=== PATIENT | male | born 1970 | race Caucasian/White ===

== ENCOUNTER 2017-02-07 17:12 | Emergency (ER) | payer SELFPAY ==
--- NOTE | 2017-02-07 18:02 | Emergency Department Report ---
Chief Complaint: High BP Stated Complaint: HEADACHE/HBP Time Seen by Provider: 02/07/17 17:57 - HPI History of Present Illness: PT states he has been out of his htn medication x 1.5 months. PT c/o headache that started 2 days ago, gradually worsened. PT states slight improvement after taking Motrin yesterday. PT states he went up to the fire dept in [place] and was told that his bp was 180/110. - ROS Review of Systems: - chest pain - sob + headaches + intermittent dizziness - Exam Vital Signs: Vital Signs 02/07/17 17:32 Temperature 98.5 F Pulse Rate 83 Respiratory 20 Rate Blood Pressure 185/130 O2 Sat by Pulse 100 Oximetry Physical Exam: PT looks well, non toxic. No acute distress gcs 15. steady gait RRR, lungs cta MSE screening note: Focused history and physical exam performed. Due to findings the following was ordered: labs, EKG ED Disposition for MSE Condition: Stable
[2017-02-07 18:25] LABS: Basophils % (Auto) 1.1 % (0.0-1.8); Eosinophils % (Auto) 5.8 % (0.0-4.3); Hematocrit 46.2 % (35.5-45.6); Hemoglobin 15.6 gm/dl (11.8-15.2); Mean Corpuscular HGB Conc 34 % (32-34); Mean Corpuscular Hemoglobin 29 pg (28-32); Mean Corpuscular Volume 86 fl (84-94); Platelet Count 207 K/mm3 (140-440); White Blood Count 6.1 K/mm3 (4.5-11.0)
[2017-02-07 18:44] LABS: Anion Gap 17 mmol/L; BUN/Creatinine Ratio 11.11; Blood Urea Nitrogen 10 mg/dL (9-20); Carbon Dioxide 21 mmol/L (22-30); Chloride 103.5 mmol/L (98-107); Glucose 112 mg/dL (75-100); Sodium 137 mmol/L (137-145)
[2017-02-07] MEDS ORDERED: ZESTRIL PO ONE (19:38)
[2017-02-07] MEDS ORDERED: HCTZ PO ONE (19:38)
[2017-02-07] MEDS ORDERED: TYLENOL PO ONE (19:39)
--- NOTE | 2017-02-07 23:18 | Emergency Department Report ---
ED Headache HPI - General Chief Complaint: High BP Stated Complaint: HEADACHE/HBP Time Seen by Provider: 02/07/17 17:57 Source: patient Exam Limitations: no limitations - History of Present Illness Initial Comments: 46-year-old male with a past medical history hypertension presents hospital complaints of headache and elevated blood pressure. Patient has been out of his blood pressure medication for the last 3 weeks. For the past 3-4 days he has had intermittent headache. Headache is left sided, the top of the head patient's, and occasional back in the head. Headache is typical of previous hypertensive-related headaches. Headache rated the/10 in intensity without aggravating or alleviating factors reported. Patient does not have any medications because he did not have insurance to see another physician for med refill. He denies blurred vision, nausea, vomiting, chest pain, shortness of breath, diaphoresis, focal numbness or weakness. PT now has insurance and plans to follow-up with the doctor on a regular basis. Allergies/Adverse Reactions: Allergies No Known Allergies Allergy (Unverified 02/07/17 17:31) Home Medications: Ambulatory Orders Lisinopril/Hydrochlorothiazide [Zestoretic 10-12.5 mg] 1 tab PO QDAY #30 tablet 02/07/17 ED Review of Systems ROS: Stated complaint: HEADACHE/HBP Other details as noted in HPI Comment: All other systems reviewed and negative Other: Constitutional: No fevers chills Eyes: No eye pain visual changes ENT: No ear pain or throat pain Neck: Denies pain Respiratory: Denies cough wheezing shortness of breath Cardiovascular: Denies chest pain, palpitations, syncope GI: Denies abdominal pain, nausea, vomiting, diarrhea : Denies dysuria Musculoskeletal: Denies back pain, joint swelling Skin: Denies rash, lesions, erythema Neurologic: As per HPI Psychiatric: Denies suicidal ideation, hallucinations ED Past Medical Hx - Past Medical History Previous Medical History?: Yes Hx Hypertension: Yes - Surgical History Past Surgical History?: No - Social History Smoking Status: Current Every Day Smoker Substance Use Type: Alcohol, Prescribed - Medications Home Medications: Home Medications Medication Instructions Recorded Confirmed Last Taken Type Lisinopril/Hydrochlorothiazide 1 tab PO QDAY #30 tablet 02/07/17 Unknown Rx [Zestoretic 10-12.5 mg] ED Physical Exam - General Limitations: No Limitations - Other Other exam information: General: No limitations, patient is alert in no acute distress Head exam: Atraumatic, normocephalic Eyes exam: Normal appearance ENT: Moist mucous membrane, normal oropharynx Neck exam: Normal inspection, full range of motion, no meningismus nontender Respiratory exam: Clear to auscultation bilateral, no wheezes, rales, crackles Cardiovascular: Normal rate and rhythm, normal heart sounds Abdomen: Soft, nondistended, and nontender, with normal bowel sounds, no rebound, or guarding Extremity: Full range of motion normal inspection no deformity Back: Normal Inspection, full range of motion, no tenderness Neurologic: Alert, oriented x3, cranial nerves intact, no motor or sensory deficit Psychiatric: normal affect, normal mood Skin: Warm, dry, intact ED Course Vital Signs 02/07/17 02/07/17 02/07/17 17:32 19:38 19:54 Temperature 98.5 F Pulse Rate 83 83 83 Respiratory 20 18 Rate Blood Pressure 185/130 Blood Pressure 156/111 [Right] O2 Sat by Pulse 100 Oximetry 02/07/17 20:55 Temperature Pulse Rate 84 Respiratory 220 H Rate Blood Pressure Blood Pressure 165/117 [Right] O2 Sat by Pulse 99 Oximetry - Reevaluation(s) Reevaluation #1: 02/07/17 23:17 Patient received Tylenol, lisinopril, and hydrochlorothiazide at his typical home dose prior to my evaluation with reduction in blood pressure. To my examination BP is 151/105 and patient states that his headache has completely resolved. ED Medical Decision Making - Lab Data Result diagrams: 02/07/17 18:13 02/07/17 18:13 Lab Results 02/07/17 02/07/17 Range/Units 18:13 18:13 WBC 6.1 (4.5-11.0) K/mm3 RBC 5.40 H (3.65-5.03) M/mm3 Hgb 15.6 H (11.8-15.2) gm/dl Hct 46.2 H (35.5-45.6) % MCV 86 (84-94) fl MCH 29 (28-32) pg MCHC 34 (32-34) % RDW 13.0 L (13.2-15.2) % Plt Count 207 (140-440) K/mm3 Lymph % (Auto) 40.1 H (13.4-35.0) % Harlan % (Auto) 9.5 H (0.0-7.3) % Eos % (Auto) 5.8 H (0.0-4.3) % Baso % (Auto) 1.1 (0.0-1.8) % Lymph # 2.4 (1.2-5.4) K/mm3 Harlan # 0.6 (0.0-0.8) K/mm3 Eos # 0.4 (0.0-0.4) K/mm3 Baso # 0.1 (0.0-0.1) K/mm3 Seg Neutrophils % 43.5 (40.0-70.0) % Seg Neutrophils # 2.6 (1.8-7.7) K/mm3 Sodium 137 (137-145) mmol/L Carbon Dioxide 21 L (22-30) mmol/L BUN 10 (9-20) mg/dL Creatinine 0.9 (0.8-1.5) mg/dL Estimated GFR > 60 ml/min BUN/Creatinine Ratio 11.11 % Glucose 112 H (75-100) mg/dL Calcium 9.0 (8.4-10.2) mg/dL Troponin T < 0.010 (0.00-0.029) ng/mL Lab reports that the potassium is 4.0, chloride 103.5, anion gap 17 - EKG Data -: EKG Interpreted by Me (sinus rate 82, left atrial enlargement no ST elevation MO) - EKG Data When compared to previous EKG there are: previous EKG unavailable - Medical Decision Making Patient's symptoms improved and hisblood pressure is reducing. Patient will be restarted on his home meds and discharged home with PMD follow-up. No signs of hypertensive emergency at this time - Differential Diagnosis hypertensive headache, hypertensive emergency, urgency, medication noncompl Critical Care Time: No Critical care attestation.: If time is entered above; I have spent that time in minutes in the direct care of this critically ill patient, excluding procedure time. ED Disposition Clinical Impression: Hypertension, uncontrolled, Headache, Noncompliance with medication regimen Disposition: DISCHARGED TO HOME OR SELFCARE Is pt being admited?: No Does the pt Need Aspirin: No Condition: Stable Instructions: Hypertension (ED), Acute Headache (ED) Additional Instructions: Take the medication as prescribed. Follow-up with the doctor provided with the doctor of your choice for further management. Return if symptoms worsen Prescriptions: Lisinopril/Hydrochlorothiazide [Zestoretic 10-12.5 mg] 1 tab PO QDAY #30 tablet Referrals: KRISTY DING MD [Staff Physician] - 3-5 Days Time of Disposition: 23:20
[2017-02-07 23:33] VITALS: BP 138/93
== END 2017-02-07 23:34 | disposition home or self-care (01) ==
LOC: ED 17:12
DX: I10 Essential (primary) hypertension (principal); R51 Headache; Z91.14 Patient's other noncompliance with medication regimen; F17.200 Nicotine dependence, unspecified, uncomplicated
CPT/HCPCS: 36415; 80048; 84484; 85025; 93005; 93010; 99283

== ENCOUNTER 2022-08-09 23:04 | Emergency (ER) | payer SELFPAY ==
[2022-08-10] MEDS ORDERED: SODIUM CHLORIDE 0.9% 1000 ML 2,000 ML IV ONE (03:23)
--- NOTE | 2022-08-10 03:50 | Emergency Department Report ---
ED General Adult HPI - General Chief complaint: Hyperglycemia Stated complaint: HYPERGLYCEMIA Time Seen by Provider: 08/10/22 03:49 Source: patient, EMS ( EMS documentation not available at time of chart dictation ), RN notes reviewed, old records reviewed Mode of arrival: Stretcher Limitations: No Limitations - History of Present Illness Initial comments: The patient was evaluated in the emergency department for symptoms described in the history of present illness. He/she was evaluated in the context of the global COVID-19 pandemic, which necessitated consideration that the patient might be at risk for infection with the virus that causes COVID-19. Institutional protocols and algorithms that pertain to the evaluation of patients at risk for COVID-19 are in a state of rapid change based on information released by regulatory bodies including the CDC and federal and state organizations. These policies and algorithms were followed during the patient's care in the emergency department. Please note that these policies, procedures and recommendations changed on a rapid basis. This is a 51-year-old gentleman who was recently diagnosed with COVID a few weeks ago. He is not COVID-19 vaccinated. He is currently taking albuterol, Tessalon, Augmentin, prednisone, Norvasc and lisinopril. To the best of his knowledge, he does not have a formal diagnosis of type 2 diabetes. He presents to the department today with a complaint of cough, sore throat, malaise, fatigue, polyuria and dysuria. He denies physical pain. He normally smokes c igarettes, he stopped 3 months ago. He sleeps in bed by himself but snores. He has not been formally tested for obstructive sleep apnea. He was found to have high glucose in the emergency department. -: days(s), week(s) Location: mouth Consistency: constant Improves with: rest Worsens with: eating - Related Data Previous Rx's Medication Instructions Recorded Last Taken Type Lisinopril/Hydrochlorothiazide 1 tab PO QDAY #30 tablet 02/07/17 Unknown Rx [Zestoretic 10-12.5 mg] Metoclopramide [Reglan] 10 mg PO Q6HR PRN #30 tab 08/10/22 Unknown Rx metFORMIN [Glucophage] 500 mg PO QDAY #30 tab 08/10/22 Unknown Rx Allergies Allergy/AdvReac Type Severity Reaction Status Date / Time No Known Allergies Allergy Verified 08/10/22 03:45 ED Review of Systems ROS: Stated complaint: HYPERGLYCEMIA Other details as noted in HPI Constitutional: malaise, weakness. denies: fever Eyes: denies: eye discharge ENT: congestion Respiratory: cough Cardiovascular: denies: chest pain Gastrointestinal: abdominal pain. denies: vomiting Genitourinary: frequency Neurological: weakness ED Past Medical Hx - Past Medical History Hx Hypertension: Yes - Social History Smoking Status: Current Every Day Smoker Substance Use Type: Alcohol, Prescribed - Medications Home Medications: Home Medications Medication Instructions Recorded Confirmed Last Taken Type Lisinopril/Hydrochlorothiazide 1 tab PO QDAY #30 tablet 02/07/17 Unknown Rx [Zestoretic 10-12.5 mg] Metoclopramide [Reglan] 10 mg PO Q6HR PRN #30 tab 08/10/22 Unknown Rx metFORMIN [Glucophage] 500 mg PO QDAY #30 tab 08/10/22 Unknown Rx ED Physical Exam - General Limitations: No Limitations General appearance: alert, obese - Head Head exam: Present: atraumatic, normocephalic - Eye Eye exam: Present: normal appearance, EOMI. Absent: nystagmus - ENT ENT exam: Present: normal orophraynx, mucous membranes dry, normal external ear exam - Neck Neck exam: Present: normal inspection, full ROM. Absent: tenderness, meningismus - Respiratory Respiratory exam: Present: normal lung sounds bilaterally. Absent: respiratory distress, wheezes, rales, rhonchi, stridor, decreased breath sounds - Cardiovascular Cardiovascular Exam: Present: normal rhythm, tachycardia, normal heart sounds. Absent: bradycardia, irregular rhythm, systolic murmur, diastolic murmur, rubs, gallop - GI/Abdominal GI/Abdominal exam: Present: soft. Absent: distended, tenderness, guarding, rebound, rigid, pulsatile mass - Rectal Rectal exam: Present: deferred - Extremities Exam Extremities exam: Present: normal inspection, full ROM, other (2+ pulses noted in the bilateral upper and lower extremities. There is no palpable cord. negative Homans sign. Muscular compartments are soft. The pelvis is stable.). Absent: pedal edema, calf tenderness - Back Exam Back exam: Present: normal inspection, full ROM. Absent: tenderness, CVA tender ness (R), CVA tenderness (L), paraspinal tenderness, vertebral tenderness - Neurological Exam Neurological exam: Present: alert, oriented X3, normal gait, other (No facial droop. Tongue midline. Extraocular movements intact bilaterally. Facial sensation intact to light touch in V1, V2, V3 distribution bilaterally. 5 and a 5 strength in 4 extremities. Sensation intact to light touch in 4 extremities.). Absent: motor sensory deficit - Psychiatric Psychiatric exam: Present: anxious - Skin Skin exam: Present: warm, dry, intact, normal color. Absent: rash ED Course Vital Signs 08/09/22 08/10/22 08/10/22 23:14 03:18 03:30 Temperature 98.7 F Pulse Rate 105 H 101 H 111 H Respiratory 16 23 20 Rate Blood Pressure 126/86 Blood Pressure 122/84 [Right] O2 Sat by Pulse 97 97 98 Oximetry O2 Sat by Pulse Oximetry [ Digit-Finger] 08/10/22 08/10/22 08/10/22 03:46 04:00 04:16 Temperature Pulse Rate 101 H 97 H 95 H Respiratory 19 20 20 Rate Blood Pressure 121/83 121/83 127/80 Blood Pressure [Right] O2 Sat by Pulse 97 97 98 Oximetry O2 Sat by Pulse Oximetry [ Digit-Finger] 08/10/22 08/10/22 04:30 05:11 Temperature Pulse Rate 85 Respiratory 13 Rate Blood Pressure 127/80 Blood Pressure [Right] O2 Sat by Pulse 98 Oximetry O2 Sat by Pulse 99 Oximetry [ Digit-Finger] - Reevaluation(s) Reevaluation #1: 08/10/22 05:04 Differential diagnosis, including but not limited to: Long COVID, viral syndrome, obstructive sleep apnea, type 2 diabetes, hyperosmolar state, diabetic ketoacidosis Assessment and plan: 51-year-old gentleman with probable subacute long COVID symptoms. He also most likely has undiagnosed obstructive sleep apnea. He is not hypoxic. Discussed natural history of obstructive sleep apnea, as well as long COVID. Supportive care, salt water gargles, Tylenol or Motrin. Patient is found to have high glucose. IV fluids ordered. Ice chips with water have been provided to the patient. Currently awaiting basic metabolic panel 08/10/22 05:07 Patient is found to have hyperglycemia, and pseudohyponatremia. Venous pH within normal limits, although anion gap minimally elevated. IV fluids ordered. Insulin ordered. Repeat basic metabolic panel ordered. Care will be transferred to the oncoming ER physician, Dr Medina Bishop, to follow-up on repeat basic metabolic panel. If improved, consider discharge with diet and lifestyle modifications, as well as outpatient metformin. Long COVID and presumed obstructive sleep apnea may require outpatient follow-up 08/10/22 06:03 - Pulse Oximetry Interpretation Digit-Finger Initial Pulse Oximetry Readin O2 Sat by Pulse Oximetry: 99 Actions Taken: none ED Medical Decision Making - Lab Data Result diagrams: 08/10/22 03:34 08/10/22 03:34 Vital Signs 08/09/22 08/10/22 08/10/22 23:14 03:18 03:30 Temperature 98.7 F Pulse Rate 105 H 101 H 111 H Respiratory 16 23 20 Rate Blood Pressure 126/86 Blood Pressure 122/84 [Right] O2 Sat by Pulse 97 97 98 Oximetry 08/10/22 08/10/22 08/10/22 03:46 04:00 04:16 Temperature Pulse Rate 101 H 97 H 95 H Respiratory 19 20 20 Rate Blood Pressure 121/83 121/83 127/80 Blood Pressure [Right] O2 Sat by Pulse 97 97 98 Oximetry 08/10/22 04:30 Temperature Pulse Rate 85 Respiratory 13 Rate Blood Pressure 127/80 Blood Pressure [Right] O2 Sat by Pulse 98 Oximetry Lab Results 08/10/22 08/10/22 08/10/22 Range/Units 03:12 03:34 03:34 WBC 7.7 (4.5-11.0) K/mm3 RBC 4.99 (3.65-5.03) M/mm3 Hgb 14.9 (11.8-15.2) gm/dl Hct 43.3 (35.5-45.6) % MCV 87 (84-94) fl MCH 30 (28-32) pg MCHC 35 H (32-34) % RDW 12.3 L (13.2-15.2) % Plt Count 272 (140-440) K/mm3 VBG pH (7.320-7.420) Sodium 132 L (137-145) mmol/L Potassium 4.6 (3.6-5.0) mmol/L Chloride 94.4 L (98-107) mmol/L Carbon Dioxide 20 L (22-30) mmol/L Anion Gap 22 mmol/L BUN 17 (9-20) mg/dL Creatinine 1.2 (0.8-1.3) mg/dL Estimated GFR > 60 ml/min BUN/Creatinine Ratio 14 % Glucose 574 H* (75-100) mg/dL POC Glucose 531 H (70-105) mg/dL Calcium 9.3 (8.4-10.2) mg/dL Magnesium 1.90 (1.7-2.3) mg/dL Total Bilirubin 0.70 (0.1-1.2) mg/dL AST 20 (5-40) units/L ALT 48 (7-56) units/L Alkaline Phosphatase 152 H (35-129) units/L Total Protein 6.7 (6.3-8.2) g/dL Albumin 4.2 (3.9-5) g/dL Albumin/Globulin Ratio 1.7 % 08/10/22 Range/Units 03:34 WBC (4.5-11.0) K/mm3 RBC (3.65-5.03) M/mm3 Hgb (11.8-15.2) gm/dl Hct (35.5-45.6) % MCV (84-94) fl MCH (28-32) pg MCHC (32-34) % RDW (13.2-15.2) % Plt Count (140-440) K/mm3 VBG pH 7.331 (7.320-7.420) Sodium (137-145) mmol/L Potassium (3.6-5.0) mmol/L Chloride (98-107) mmol/L Carbon Dioxide (22-30) mmol/L Anion Gap mmol/L BUN (9-20) mg/dL Creatinine (0.8-1.3) mg/dL Estimated GFR ml/min BUN/Creatinine Ratio % Glucose (75-100) mg/dL POC Glucose (70-105) mg/dL Calcium (8.4-10.2) mg/dL Magnesium (1.7-2.3) mg/dL Total Bilirubin (0.1-1.2) mg/dL AST (5-40) units/L ALT (7-56) units/L Alkaline Phosphatase (35-129) units/L Total Protein (6.3-8.2) g/dL Albumin (3.9-5) g/dL Albumin/Globulin Ratio % Critical care attestation.: If time is entered above; I have spent that time in minutes in the direct care of this critically ill patient, excluding procedure time. ED Disposition Clinical Impression: Long COVID, Hyperglycemia Disposition: 30 STILL A PATIENT Is pt being admited?: No Condition: Stable Instructions: Sleep Apnea, Hyperglycemia, [id number] Additional Instructions: We recommend that patient complete his COVID-19 vaccination series when able to. We recommend that patient aggressively lose weight, diet appropriately, and participate in exercise as tolerated. Patient may reference the [place] [employer] website for instructions and recommendations on how to consume an appropriate diabetic diet. Patient most likely has symptoms of COVID, and long COVID. COVID symptoms may last for up to a few months. May alternate Tylenol and Motrin [id number], salt water gargles. Patient most likely has obstructive sleep apnea. Treatment for sleep apnea will be diet lifestyle modifications as previously described. We also recommend follow-up with a sleep physician, such as Dr. Vargas, To arrange for definitive outpatient sleep study. Patient most likely has type 2 diabetes mellitus. First-line treatment will be diet lifestyle modifications, appropriate food consumption, and exercise. Patient may take the prescribed metformin if he so desires to assist with glucose control. Side effects of metformin may include abdominal cramping, nausea, vomiting and diarrhea. Follow-up with a primary care doctor within the next 2 weeks. Follow-up with a sleep physician within the next 2 weeks. Please return to the emergency room right away with new pain, worsened pain, migration of pain, projectile vomiting, change in mental status, confusion, inability tolerate liquid feeds, new, worsened or different symptoms not present on the initial emergency room evaluation Prescriptions: metFORMIN [Glucophage] 500 mg PO QDAY #30 tab Metoclopramide [Reglan] 10 mg PO Q6HR PRN #30 tab PRN Reason: Nausea Referrals: [facility] [Provider Group] - 3-5 Days UMBERTO VARGAS MD [Staff Physician] - 3-5 Days Forms: Work/School Release Form(ED)
[2022-08-10 04:22] LABS: Hematocrit 43.3 % (35.5-45.6); Hemoglobin 14.9 gm/dl (11.8-15.2); Mean Corpuscular HGB Conc 35 % (32-34); Mean Corpuscular Volume 87 fl (84-94); Platelet Count 272 K/mm3 (140-440); Red Blood Count 4.99 M/mm3 (3.65-5.03); Red Cell Distribution Width 12.3 % (13.2-15.2)
[2022-08-10 04:40] LABS: Alanine Aminotransferase 48 units/L (7-56); Albumin 4.2 g/dL (3.9-5); BUN/Creatinine Ratio 14; Blood Urea Nitrogen 17 mg/dL (9-20); Calcium 9.3 mg/dL (8.4-10.2); Hemolysis Index 11
[2022-08-10] MEDS ORDERED: SODIUM CHLORIDE 0.9% 1000 ML 1,000 ML IV ONE (05:06)
[2022-08-10] MEDS ORDERED: INSULIN REGULAR, HUMAN 100 UNITS/1 ML IV ONE ×2 (05:06→05:14)
[2022-08-10 07:38] LABS: BUN/Creatinine Ratio 15; Blood Urea Nitrogen 18 mg/dL (9-20); Calcium 9.5 mg/dL (8.4-10.2); Hemolysis Index 11
[2022-08-10 08:10] VITALS: BP 121/88
== END 2022-08-10 08:18 | disposition still patient (30) ==
LOC: ED 23:04
DX: R73.9 Hyperglycemia, unspecified (principal); U09.9 Post COVID-19 condition, unspecified; F17.200 Nicotine dependence, unspecified, uncomplicated; F10.20 Alcohol dependence, uncomplicated; I10 Essential (primary) hypertension
CPT/HCPCS: 36415; 80048; 80053; 82805; 82962; 83735; 85027; 96361; 96374; 99284; Q9967; J1815